=== PATIENT | male | born 1995 | race African-American/Black ===

== ENCOUNTER 2020-03-14 08:25 | Emergency (ER) | payer OTHER ==
[~2020-03-14] VITALS: Ht 177.8 cm; Wt 70.0 kg
[2020-03-14 08:27] VITALS: BP 134/87
[2020-03-14] MEDS ORDERED: DOCUSATE SODIUM 100MG CAPSULE PO SCH (09:00)
== END 2020-03-14 08:54 | disposition home or self-care (01) ==
LOC: ER 08:52
DX: K59.00 Constipation, unspecified (principal); K21.9 Gastro-esophageal reflux disease without esophagitis; Z88.6 Allergy status to analgesic agent; Z90.49 Acquired absence of other specified parts of digestive tract
CPT/HCPCS: 99282